=== PATIENT | female | born 1955 | race Two or more races ===

== ENCOUNTER 2022-05-27 12:32 | Emergency (ER) | payer OTHER ==
[~2022-05-27] VITALS: Ht 157.5 cm; Wt 82.1 kg
[~2022-05-27 12:32] MED LIST: CARISOPRODOL
== END 2022-05-27 18:45 | disposition home or self-care (01) ==
LOC: ER 12:32
DX: R51.9 Headache, unspecified (principal); F41.9 Anxiety disorder, unspecified; I10 Essential (primary) hypertension